=== PATIENT | female | born 1995 | race Two or more races ===

== ENCOUNTER 2019-04-01 22:31 | Emergency (ER) | payer SELFPAY ==
[~2019-04-01] VITALS: Ht 162.6 cm; Wt 59.0 kg
[2019-04-02] MEDS ORDERED: SODIUM CHLORIDE 0.9% 1,000 ML IV ONE (00:32)
[2019-04-02] MEDS ORDERED: ONDANSETRON HCL 4MG/2ML INJ IV STA (00:32)
[2019-04-02 01:47] VITALS: BP 120/75
== END 2019-04-02 01:48 | disposition home or self-care (01) ==
LOC: ER 22:31
DX: T51.0X1A Toxic effect of ethanol, accidental (unintentional), initial encounter (principal); R11.2 Nausea with vomiting, unspecified; F10.129 Alcohol abuse with intoxication, unspecified; Y90.6 Blood alcohol level of 120-199 mg/100 ml; R03.0 Elevated blood-pressure reading, without diagnosis of hypertension; Y92.252 Music hall as the place of occurrence of the external cause
CPT/HCPCS: 36415; 80320; 96361; 96374; 99283; J2405; J7030; G0480